=== PATIENT | female | born 1990 | race Caucasian/White ===

== ENCOUNTER 2021-11-05 11:27 | Outpatient (REF) | payer OTHER, SELFPAY | END 2021-11-05 11:28 | disposition home or self-care (01) | LOC: HO.HMGCLDS 11:27 | PROVIDERS: Visit Provider Internal Medicine | DX: Z20.822 Contact with and (suspected) exposure to COVID-19 (principal) | CPT/HCPCS: C9803; U0003; U0005 ==

== ENCOUNTER 2022-02-20 09:02 | Emergency (ER) | payer OTHER, SELFPAY ==
--- NOTE | 2022-02-20 | ECG_ITS ---
Test Reason : CHEST PAIN Blood Pressure : / mmHG Vent. Rate : 096 BPM Atrial Rate : 096 BPM P-R Int : 168 ms QRS Dur : 080 ms QT Int : 378 ms P-R-T Axes : 047 020 043 degrees QTc Int : 477 ms Poor data quality Sinus rhythm with sinus arrhythmia Otherwise normal ECG When compared to the previous EKG of Poor data quality in current ECG precludes serial comparison Referred By: Generic ED Physician Electronically Signed By:PELON AWAD MD
--- NOTE | ~2022-02-20 | CT_ITS ---
EXAMINATION: CT ANGIOGRAM OF THE CHEST WITH AND WITHOUT CONTRAST (CT PULMONARY ANGIOGRAM FOR PE) CLINICAL INFORMATION: Reason for Exam shortness of breath, chest pain COMPARISON: None TECHNIQUE: Prior to contrast administration, noncontrast localization images were obtained. Subsequently, multidetector volumetric imaging was performed from the thoracic inlet to below the diaphragms following the administration of 85 mL Omnipaque 350 intravenous contrast. No contrast reaction reported Sagittal, coronal, and MIP oblique sagittal reformatted images were obtained on the CT workstation, uploaded to PACS, and reviewed. This CT examination was performed using dose optimization techniques as appropriate, variously including the following: *Automated exposure control *Adjustment of mA and/or kV according to patient size (this includes techniques or standardized protocols for targeted exams where dose is matched to indication/reason for exam; i.e. extremities or head) *Use of iterative reconstruction technique Total exam dose-length product 250 mGy-cm FINDINGS: QUALITY OF STUDY/CONTRAST BOLUS: Satisfactory. PULMONARY ARTERIES: No central or segmental pulmonary emboli. THORACIC AORTA: No aneurysm or dissection. LUNG: No focal consolidation, nodules or masses. Mild diffuse bronchial thickening without bronchiectasis. PLEURA: No pleural effusion or pneumothorax. MEDIASTINUM: Normal heart size. No pericardial effusion. No hilar or mediastinal lymphadenopathy. No evidence of septal bowing or right heart strain. CHEST WALL/AXILLA: No axillary or internal mammary lymphadenopathy. OSSEOUS STRUCTURES: No acute or suspicious osseous abnormality. UPPER ABDOMEN: Unremarkable. CT/CT angio chest PE protocol IMPRESSION: No pulmonary embolism. No acute pulmonary parenchymal abnormalities. VTE: negative
--- NOTE | 2022-02-20 09:09 | ED.GENADULT ---
HPI - General Adult General Chief complaint: Asthma Stated complaint: asthma chest pain Time Seen by Provider: 02/20/22 09:09 Source: patient Mode of arrival: ambulatory Limitations: no limitations History of Present Illness HPI narrative: Patient is a 31 year old female presenting to the emergency department today with chest pain. Patient states that she has a history of asthma and was recently started on a new medication but does not feel like the medication is helping. Patient states that she feels like she is more short of breath with this chest pain and feels as though the chest pain is her lungs rubbing on her ribs. Patient denies any dizziness, lightheadedness, abdominal pain, nausea, vomiting, fever, chills, blurry vision, double vision, loss of vision, back pain, night sweats, pain with urination, increased urinary frequency, increased urinary urgency, blood in her urine or stool, syncope or a near syncopal episode, recent trauma or falls, bowel incontinence, bladder incontinence, bowel retention, bladder retention, or any other complaints at this time. Onset (ago): day(s) Location: chest Radiation: non-radiation Severity: mild Severity scale (1-10): 3 Quality: dull Pain Consistency: constant Relieving factors: none Exacerbating factors: none Associated symptoms: shortness of breath Treatments prior to arrival: none Related Data Previous Rx's Medication Instructions Recorded ibuprofen 200 mg tablet 200 mg PO Q6H PRN #20 tab 02/20/22 Allergies Allergy/AdvReac Type Severity Reaction Status Date / Time diphenhydramine Allergy Intermediate SKIN Unverified 07/20/20 19:09 [From BENADRYL] CRAWLING latex [LATEX] Allergy Intermediate ITCHINESS Unverified 07/20/20 19:09 SEAFOOD Allergy Intermediate THROAT Uncoded 07/20/20 19:09 CLOSES Benadryl Allergy Unknown Uncoded 03/24/19 00:00 Review of Systems Constitutional: Constitutional: Reports no additional constitutional complaints, Denies chills, Denies fever(s) and Denies night sweats Eyes: Eyes: Reports no additional eye complaints, Denies blurry vision, Denies change in vision, Denies diplopia, Denies eye discharge, Denies loss of vision and Denies eye pain ENT: Denies dizziness Cardiovascular: Cardiovascular: Reports no additional cardiovascular complaints, Reports chest pain, Denies lightheadedness, Denies Loss of Consciousness and Reports dyspnea Respiratory: Respiratory: Reports no additional respiratory complaints and Reports dyspnea Gastrointestinal: Gastrointestinal: Reports no additional gastrointestinal complaints, Denies abdominal pain, Denies melena, Denies hematochezia, Denies change in bowel habits and Denies change in stool character Genitourinary: Genitourinary: Denies hematuria, Denies urinary frequency, Denies dysuria, Denies urinary incontinence, Denies urinary hesitancy and Denies urinary urgency Musculoskeletal: Musculoskeletal: Reports no additional musculoskeletal complaints, Denies numbness and Denies tingling Neurologic: Denies dizziness, Denies loss of vision, Denies numbness and Denies tingling Psychiatric: Psychiatric: Reports no additional psychiatric complaints Endocrine: Endocrine: Reports no additional endocrine complaints Hematologic/Lymphatic: Hematologic/Lymphatic: Reports no additional hematologic/lymphatic complaints Allergic/Immunologic: Allergic/Immunologic: Reports no additional allergic/immunologic complaints PMFSH Past Medical History Attestation statement: The following information was validated with the patient. Source: old records reviewed Social History Social History Alcohol intake: never Patient Tobacco Use Status: Never used Tobacco Smoked in Last 30 Days: No Use of substances other than those prescribed or required for medical reasons: Yes Substance Use Type: Marijuana Substance Use Frequency: Weekly Any prior treatment program specific to substance use: No Advance Directives: No Advance Directives Information Provided: No Patient : No Physical Exam ED Vital Signs: Vital Signs - 24 hr 02/20/22 09:16 02/20/22 09:27 02/20/22 10:18 Temperature 98.1 F 98.7 F Pulse Rate 72 73 88 Respiratory Rate 20 18 22 H Blood Pressure 110/64 118/92 H Pulse Oximetry 98 BMI result Body Mass Index 27.6 Const General: cooperative, no acute distress, alert and awake Nutritional Appearance: well nourished Orientation/consciousness: patient oriented x3 Limitations: no limitations HENMT Head: Yes normal to inspection and Yes atraumatic Ears: hearing grossly normal bilaterally and external ears normal General nose exam: Normal external nose present, no nasal discharge noted and no epistaxis Face and sinus: Yes normal facial exam, No abrasion and No laceration Mouth: Normal oral and palatal mucosa present, no drooling and no muffled voice Eyes General: appearance normal, both eyes and all related structures Periorbital: periorbital findings normal Eyelids: Yes eyelids normal Conjunctivae: conjunctivae normal Pupils: Equal, round and reactive pupils present EOM: EOMs intact bilaterally Neck Neck: Yes normal visual inspection, Yes full ROM and Yes no lymphadenopathy Chest Chest palpation & inspection: normal inspection of the chest Resp Effort & Inspection: normal respiratory effort and able to speak in complete sentences Auscultation: clear to auscultation bilaterally Cardio Rate: regular rate Rhythm: regular rhythm GI Inspection: Yes normal to inspection Neuro General: patient oriented x3 and moves all extremities Cranial nerves: Yes Equal, round and reactive pupils present Cognition (Neuro): normal cognition Motor exam (neuro): 5/5 motor strength present throughout Sensory Exam: Normal double simultaneous stimulation for sensation Coordination: [id number] test normal Extrem General: Yes normal to inspection, Yes full ROM and Yes capillary refill normal Psych Appearance: grossly normal Mental Status: mental status grossly normal Affect: normal affect Attitude: cooperative Thought process: Normal thought process present Thought content: Normal thought content present Insight: Good insight present (Psych) Medical Decision Making [facility] Narrative Medical decision making narrative: Patient is a 31 year old female presenting to the emergency department today with chest pain and shortness of breath. Patient's physical exam was unremarkable. Patient's blood work was unremarkable. Patient's EKG was unremarkable. Patient's CT PE showed no acute process. I explained my physical exam findings as well as all test results to the patient. I answered all questions asked by the patient. Patient received IV Decadron and a duoneb breathing treatment which she stated helped her symptoms significantly. I stressed the importance of the patient taking her medication as prescribed. I stressed the importance of the patient following up with her primary care provider. I stressed the importance of the patient returning to the emergency department immediately if her symptoms were to worsen or if she were to develop any dizziness, shortness of breath, difficulty breathing, chest pain, blurry vision, loss of vision, nausea, vomiting, abdominal pain, fever, chills, back pain, or any other complaints. Patient verbalized agreement and understanding with this treatment plan and discharge. Differential Diagnosis Differential Diagnosis: asthma exacerbation, costochondritis Medical Records Medical records reviewed: Yes I reviewed the patient's medical records. Lab Data Lab results reviewed: Yes I reviewed the patient's lab results. Result diagrams: 02/20/22 10:15 02/20/22 10:15 Labs: Lab Results 02/20/22 02/20/22 02/20/22 Range/Units 10:15 10:15 10:15 WBC 6.5 (4.8-10.8) X10*3/uL RBC 4.66 (4.20-5.50) X10*6/uL Hgb 13.9 (12.0-16.0) g/dl Hct 41.7 (37.0-47.0) % MCV 89.5 (80.0-98.0) fL MCH 29.8 (27.0-33.0) pg MCHC 33.3 (31.0-35.0) g/dl RDW 12.3 (11.0-16.0) % Plt Count 218 (160-400) X10*3/uL MPV 10.9 (9.4-12.3) fL Immature Gran % (Auto) 0.2 (0.0-0.4) % Neut % (Auto) 71.7 (45-73) % Lymph % (Auto) 21.0 (20-40) % Rabun % (Auto) 6.9 (2-11) % Eos % (Auto) 0.0 (0-4) % Baso % (Auto) 0.2 (0-2) % Lymph # (Auto) 1.4 (1.2-4.9) X10*3/uL Rabun # (Auto) 0.5 (0.1-1.2) X10*3/uL Eos # (Auto) 0.0 (0.0-0.4) X10*3/uL Baso # (Auto) 0.0 (0.0-0.2) X10*3/uL Abs Immat Gran (auto) 0.01 (0.00-0.03) X10*3/uL Absolute Neuts (auto) 4.7 (2.0-8.3) x10*3/uL Absolute Nucleated RBC 0.000 (0.0-0.012) X10*3/uL Nucleated RBC % (auto) 0.0 (0.0-0.2) /100WBC Sodium 139 (135-145) mmol/L Potassium 3.9 (3.3-5.1) mmol/L Chloride 108 (96-108) mmol/L Carbon Dioxide 22 (22-29) mmol/L Anion Gap 13 (12-20) BUN 16 (9-16) mg/dL Creatinine 0.75 (0.5-1.4) mg/dL Estim Creat Clear Calc 102.4 Estimated GFR > 60 Random Glucose 88 (60-115) mg/dL Calcium 10.0 (8.4-10.2) mg/dL Magnesium 3.1 H (1.6-2.6) mg/dL Total Bilirubin 1.5 H (0.0-1.0) mg/dL AST 24 (5-31) U/L ALT 40 H (0-31) U/L Alkaline Phosphatase 81 (39-117) U/L Troponin I High Sens < 3.5 (<3.5-17.0) ng/L Total Protein 7.8 (6.5-8.0) g/dL Albumin 4.4 (3.5-5.0) g/dL Beta HCG, Quant < 2 mIU/mL Imaging Data CT PE: Attestation: I personally reviewed and interpreted this imaging study as follows: Radiologist's impression: EXAMINATION: CT ANGIOGRAM OF THE CHEST WITH AND WITHOUT CONTRAST (CT PULMONARY ANGIOGRAM FOR PE) CLINICAL INFORMATION: Reason for Exam shortness of breath, chest pain COMPARISON: None? TECHNIQUE: Prior to contrast administration, noncontrast localization images were obtained. ? Subsequently, multidetector volumetric imaging was performed from the thoracic inlet to below the diaphragms following the administration of 85 mL Omnipaque 350 intravenous contrast. No contrast reaction reported Sagittal, coronal, and MIP oblique sagittal reformatted images were obtained on the CT workstation, uploaded to PACS, and reviewed. This CT examination was performed using dose optimization techniques as appropriate, variously including the following: *Automated exposure control *Adjustment of mA and/or kV according to patient size (this includes techniques or standardized protocols for targeted exams where dose is matched to indication/reason for exam; i.e. extremities or head) *Use of iterative reconstruction technique Total exam dose-length product 250 mGy-cm FINDINGS: QUALITY OF STUDY/CONTRAST BOLUS: Satisfactory. PULMONARY ARTERIES: No central or segmental pulmonary emboli.? THORACIC AORTA: No aneurysm or dissection. LUNG: No focal consolidation, nodules or masses. Mild diffuse bronchial thickening without bronchiectasis. PLEURA: No pleural effusion or pneumothorax. MEDIASTINUM: Normal heart size.? No pericardial effusion.? No hilar or mediastinal lymphadenopathy.? No evidence of septal bowing or right heart strain. CHEST WALL/AXILLA: No axillary or internal mammary lymphadenopathy. OSSEOUS STRUCTURES: No acute or suspicious osseous abnormality.? UPPER ABDOMEN: Unremarkable. CT/CT angio chest PE protocol IMPRESSION: No pulmonary embolism. No acute pulmonary parenchymal abnormalities. ? VTE: negative Dictated By: Daniel Izaguirre MD Signed By: Electronically signed by Daniel Izaguirre MD 02/20/22 1205 ECG Data Attestation: I personally reviewed and interpreted this ECG as follows: Prior ECG tracings: available for review Interpretation: Vent. Rate: 096 BPM ? ? Atrial Rate: 096 BPM P-R Int: 168 ms? QRS Dur: 080 ms QT Int: 378 ms ? ? ? P-R-T Axes: 047 020 043 degrees QTc Int: 477 ms ? Poor data quality Sinus rhythm with sinus arrhythmia Otherwise normal ECG Poor data quality in current ECG precludes serial comparison Electronically Signed By:ALLAN AWAD MD Dictated By: Allan Awad MD Signed By: Electronically signed by Allan Awad MD 02/20/22 1302 Discharge Plan Discharge Clinical Impression: Asthma with acute exacerbation, Costochondritis Patient Disposition: Home, Self-Care Instructions: Asthma (ED) Additional Instructions: Follow up with your primary care provider. Return to the emergency department immediately if your symptoms worsen or if you develop any dizziness, shortness of breath, difficulty breathing, chest pain, blurry vision, loss of vision, nausea, vomiting, abdominal pain, fever, chills, back pain, or any other complaints. Prescriptions: New ibuprofen 200 mg tablet 200 mg PO Q6H PRN (Reason: pain) Qty: 20 0RF Referrals: Karan Wise NP [Primary Care Provider] - (Follow up with your PCP. ) Interventions: ED Discharge Assessment Last Done: 02/20/22 12:33 Discharge Date/Time: 02/20/22 12:33 Print Language: Kinyarwanda
[2022-02-20 09:16] VITALS: BP 110/64; PULSE 72; RESP 20; TEMP 36.7; BMI 27.6
[2022-02-20 09:27] VITALS: PULSE 73; RESP 18; O2SAT 100
[2022-02-20] MEDS: Albuterol/Iprat 2.5/0.5MG 3 ML AMPUL.NEB INHALE (09:27)
[2022-02-20] MEDS: Magnesium Sulfate/H2O 2 GM/50 ML PIGGYBACK IV (09:42)
[2022-02-20] MEDS: dexAMETHasone sod phosphate 10 MG/ML VIAL IVPUSH (09:42)
[2022-02-20 10:18] VITALS: BP 118/92; PULSE 88; RESP 22; TEMP 37.1; O2SAT 98
[2022-02-20 10:21] LABS: MANUAL DIFF FLAG NO
[2022-02-20 10:28] LABS: Basophils Percent Auto 0.2 % (0-2); Hematocrit 41.7 % (37.0-47.0); Hemoglobin 13.9 g/dl (12.0-16.0); Imm Gran Abs Auto 0.01 X10*3/uL (0.00-0.03); Imm Gran Pct Auto 0.2 % (0.0-0.4); Lymphocytes Absolute Auto 1.4 X10*3/uL (1.2-4.9); Mean Corpuscular HGB Conc 33.3 g/dl (31.0-35.0); Mean Corpuscular Hemoglobin 29.8 pg (27.0-33.0); Mean Corpuscular Volume 89.5 fL (80.0-98.0); Mean Platelet Volume 10.9 fL (9.4-12.3); Monocytes Absolute Auto 0.5 X10*3/uL (0.1-1.2); Monocytes Percent Auto 6.9 % (2-11); Neutrophils Absolute Auto 4.7 x10*3/uL (2.0-8.3); Neutrophils Percent Auto 71.7 % (45-73); Platelet Count 218 X10*3/uL (160-400); Red Blood Count 4.66 X10*6/uL (4.20-5.50); Red Cell Distribution Width 12.3 % (11.0-16.0); White Blood Count 6.5 X10*3/uL (4.8-10.8)
[2022-02-20 10:43] LABS: Alanine Aminotransferase 40 U/L (0-31); Albumin Level 4.4 g/dL (3.5-5.0); Alkaline Phosphatase 81 U/L (39-117); Anion Gap 13 (12-20); Aspartate Amino Transferase 24 U/L (5-31); Bilirubin Total 1.5 mg/dL (0.0-1.0); Blood Urea Nitrogen 16 mg/dL (9-16); Carbon Dioxide 22 mmol/L (22-29); Chloride 108 mmol/L (96-108); Creatinine Clr Calc Pharmacy 102.4; Estimated Glomerular Filt Rate > 60; Glucose Random 88 mg/dL (60-115); Magnesium 3.1 mg/dL (1.6-2.6); Potassium 3.9 mmol/L (3.3-5.1); Sodium 139 mmol/L (135-145); Total Protein 7.8 g/dL (6.5-8.0)
[2022-02-20 10:49] LABS: Troponin-I High Sensitivity < 3.5 ng/L (<3.5-17.0)
[2022-02-20 10:50] LABS: HCG Quantitative < 2 mIU/mL
[2022-02-20] MEDS: iohexoL 350 MG/ML 100 ML INFUS..BTL IV (11:39)
== END 2022-02-20 12:33 | disposition home or self-care (01) ==
PROVIDERS: Physician Assistant Medical; Emergency Provider Emergency Medicine; PCP Nurse Practitioner Family
DX: J45.901 Unspecified asthma with (acute) exacerbation (principal); M94.0 Chondrocostal junction syndrome [Tietze]
CPT/HCPCS: 36415; 71275; 80053; 83735; 84484; 84702; 85025; 93005; 94640; 96365; 96366; 96375; 99284; J1100; J3475; Q9967

== ENCOUNTER 2022-02-26 07:48 | Emergency (ER) | payer OTHER, SELFPAY ==
--- NOTE | ~2022-02-26 | XR_ITS ---
EXAMINATION: XR CHEST CLINICAL INFORMATION: Cough, shortness of breath COMPARISON: CT angiography chest from 02/20/2022 TECHNIQUE: Frontal view of the chest was obtained. FINDINGS: No focal consolidation. No pneumothorax. Trachea is midline. Cardiomediastinal silhouette is not enlarged. No large pleural effusions. Slight levocurvature of the thoracolumbar junction. Soft tissues are unremarkable. XR/XR chest 1V IMPRESSION: No acute cardiopulmonary process.
[2022-02-26 07:52] VITALS: BP 119/72; PULSE 111; RESP 26; TEMP 36.6; O2SAT 97; BMI 27.4
--- NOTE | 2022-02-26 08:09 | ECG_ITS ---
Test Reason : SOB Blood Pressure : / mmHG Vent. Rate : 097 BPM Atrial Rate : 097 BPM P-R Int : 168 ms QRS Dur : 080 ms QT Int : 352 ms P-R-T Axes : 072 065 061 degrees QTc Int : 447 ms Normal sinus rhythm Premature ventricular complexes Abnormal ECG When compared with ECG of 20-FEB-2022 09:10, No significant changes seen Referred By: Leidy Dunbar Electronically Signed By:MAINOR DAVEY
--- NOTE | 2022-02-26 08:17 | ED.SOB ---
HPI - SOB/Dyspnea General Chief Complaint: Dyspnea Stated Complaint: asthma Time Seen by Provider: 02/26/22 08:03 Source: patient Mode of arrival: ambulatory History of Present Illness HPI Narrative: 31-year-old female with a past medical history of asthma presenting to the ED complaining worsening cough, SOB, and chest tightness x1 month. Patient reports was recently seen in the ED on 02/20/2022 for similar symptoms related to her asthma, however without relief. Admits is currently using albuterol, nebulizer and prednisone without relief. Denies fever, chills, pedal edema, recent travel, sick contacts MD elicited complaint: shortness of breath, cough, chest pain and asthma attack Related Data Previous Rx's Medication Instructions Recorded ibuprofen 200 mg tablet 200 mg PO Q6H PRN #20 tab 02/20/22 albuterol sulfate 2.5 mg/0.5 mL 5 mg INHALATION Q4H PRN #30 ea 02/26/22 solution for nebulization benzonatate 200 mg capsule 200 mg PO TID PRN #20 cap 02/26/22 fluticasone propionate 50 2 spray INTRANASAL DAILY #16 g 02/26/22 mcg/actuation nasal spray,suspension (Flonase Allergy Relief) lidocaine 5 % topical patch 1 patch TOPICAL DAILY PRN #30 ea 02/26/22 (Lidoderm) MDD remove after 12 hours Allergies Allergy/AdvReac Type Severity Reaction Status Date / Time diphenhydramine Allergy Intermediate SKIN Verified 02/26/22 07:52 [From BENADRYL] CRAWLING latex [LATEX] Allergy Intermediate ITCHINESS Verified 02/26/22 07:52 SEAFOOD Allergy Intermediate THROAT Uncoded 07/20/20 19:09 CLOSES Review of Systems Review of Systems: Constitutional: No Fever, No Chills, No Fatigue, No Malaise ENT/Mouth: No Hearing loss, No Ear Pain, No Nasal Congestion, No Sinus Pain, No Hoarseness, No sore throat, No Rhinorrhea, No Swallowing Difficulty Eyes: No Eye Pain, No Swelling, No Redness Cardiovascular: + Chest Pain, + SOB, + Dyspnea on Exertion, + Orthopnea, No Edema, No Palpitations Respiratory: No Cough, No Sputum, No Wheezing, No Smoke Exposure, No Dyspnea Gastrointestinal: No Nausea, No Vomiting, No Diarrhea, No Constipation, No Abdominal pain Genitourinary: No Dysuria, No Urinary Frequency, No Hematuria, No Flank Pain, No Urinary Flow Changes Musculoskeletal: No joint pain, No Myalgias, No Joint Swelling Skin: No Skin Lesions, No rash Neuro: No Weakness, No Dizziness, No Headache Yes all other systems are reviewed and are negative [facility] Past Medical History Attestation statement: The following information was validated with the patient. Medical History Asthma Social History Social History Alcohol intake: never Patient Tobacco Use Status: Never used Tobacco Use of substances other than those prescribed or required for medical reasons: No Substance Use Type: Marijuana Advance Directives: No Advance Directives Information Provided: No Physical Exam Vital Signs: Vital Signs: Last Vital Signs Temp 98.1 F 02/26/22 08:46 Pulse 92 02/26/22 10:33 Resp 97 H 02/26/22 10:33 BP 112/59 L 02/26/22 10:33 Pulse Ox 97 02/26/22 10:33 BMI result Body Mass Index 27.4 Const: General: cooperative, healthy appearing and no acute distress Orientation/consciousness: patient oriented x3 Limitations: no limitations HEENT: Head: Yes normal to inspection and Yes atraumatic Ears: hearing grossly normal bilaterally General nose exam: Normal external nose present Face and sinus: Yes normal facial exam Eyes: General: appearance normal, both eyes and all related structures EOM: EOMs intact bilaterally Neck: Neck: Yes normal visual inspection and Yes no meningeal signs Resp: Effort & Inspection: labored and tachypneic Auscultation: no rales, no rhonchi, wheezes expiratory wheezes and diminished lung sounds diffuse Cardio: Rate: regular rate Heart sounds: S1 normal heart sound present and S2 normal heart sound present GI: Inspection: Yes normal to inspection Skin: Rashes: no rashes Wounds: no wounds Neuro: General: patient oriented x3, tone normal and no meningeal signs Gait exam (Neuro): Normal gait present Extrem: General: Yes normal to inspection, Yes no pedal edema and Yes no calf tenderness Course Course Course Narrative: -mild leukopenia to 4.2. Labs otherwise unremarkable. Troponin negative. -influenza a positive >0940--on re-evaluation patient reports symptomatic improvement, vital signs stabilized, lungs with better air movement & only mild residual end-expiratory wheeze. results discussed, will order additional albuterol neb XR chest 1V IMPRESSION: No acute cardiopulmonary process. -1039--On re-evaluation patient reports symptomatic improvement, lungs CTA on re-evaluation. Discussed worrisome signs and symptoms and strict return precautions and needed close follow-up with PCP, she verbalized understanding and feels safe for discharge home -patient currently on 15 day prednisone taper prescription filled on 02/19 MDM - SOB/Dyspnea MDM Narrative Medical decision making narrative: 31-year-old female with a past medical history of asthma presenting to the ED complaining worsening cough, SOB, and chest tightness x1 month. On exam tachypneic, tachycardic, increased work of breathing, diffuse x-ray exp wheeze. Concern for asthma exacerbation vs viral illness including COVID-19/influenza vs pneumonia. Lower concern for PE/CHF. Symptoms atypical for ACS Of no on 02/20/2022 patient had CTA to rule out PE which was unremarkable Plan: EKG, labs, CXR, COVID 19/influenza testing, DuoNeb, magnesium, Solu-Medrol, re-evaluate Differential Diagnosis Differential diagnosis: Likely acute exacerbation of chronic obstructive airways disease, pneumonia and asthma with exacerbation Medical Records Attestation: I reviewed the patient's medical records. Lab Data Attestation: I reviewed the patient's lab results. Result diagrams: 02/26/22 08:31 02/26/22 08:31 Labs: Lab Results 02/26/22 02/26/22 02/26/22 Range/Units 08:31 08:31 08:31 WBC 4.2 L (4.8-10.8) X10*3/uL RBC 4.24 (4.20-5.50) X10*6/uL Hgb 12.9 (12.0-16.0) g/dl Hct 38.4 (37.0-47.0) % MCV 90.6 (80.0-98.0) fL MCH 30.4 (27.0-33.0) pg MCHC 33.6 (31.0-35.0) g/dl RDW 12.6 (11.0-16.0) % Plt Count 168 (160-400) X10*3/uL MPV 10.6 (9.4-12.3) fL Immature Gran % (Auto) 1.0 H (0.0-0.4) % Neut % (Auto) 74.3 H (45-73) % Lymph % (Auto) 17.0 L (20-40) % [place] % (Auto) 7.0 (2-11) % Eos % (Auto) 0.2 (0-4) % Baso % (Auto) 0.5 (0-2) % Lymph # (Auto) 0.7 L (1.2-4.9) X10*3/uL [place] # (Auto) 0.3 (0.1-1.2) X10*3/uL Eos # (Auto) 0.0 (0.0-0.4) X10*3/uL Baso # (Auto) 0.0 (0.0-0.2) X10*3/uL Abs Immat Gran (auto) 0.04 H (0.00-0.03) X10*3/uL Absolute Neuts (auto) 3.1 (2.0-8.3) x10*3/uL Absolute Nucleated RBC 0.000 (0.0-0.012) X10*3/uL Nucleated RBC % (auto) 0.0 (0.0-0.2) /100WBC Sodium 141 (135-145) mmol/L Potassium 3.6 (3.3-5.1) mmol/L Chloride 108 (96-108) mmol/L Carbon Dioxide 27 (22-29) mmol/L Anion Gap 10 L (12-20) BUN 13 (9-16) mg/dL Creatinine 0.72 (0.5-1.4) mg/dL Estim Creat Clear Calc 106.4 Estimated GFR > 60 Random Glucose 87 (60-115) mg/dL Calcium 9.2 D (8.4-10.2) mg/dL Magnesium 1.8 (1.6-2.6) mg/dL Total Bilirubin 0.8 (0.0-1.0) mg/dL Direct Bilirubin 0.4 (0.0-0.5) mg/dL AST 14 D (5-31) U/L ALT 19 (0-31) U/L Alkaline Phosphatase 67 (39-117) U/L Troponin I High Sens < 3.5 (<3.5-17.0) ng/L B-Natriuretic Peptide 28 (<100) pg/mL Total Protein 6.5 (6.5-8.0) g/dL Albumin 3.9 (3.5-5.0) g/dL COVID-19 (MICHELLE) (Negative) COVID-19 Clin Com Influenza Type A (YUNIER) (Negative) Influenza Type B (YUNIER) (Negative) Influenza A & B Note 02/26/22 02/26/22 Range/Units 08:31 08:31 WBC (4.8-10.8) X10*3/uL RBC (4.20-5.50) X10*6/uL Hgb (12.0-16.0) g/dl Hct (37.0-47.0) % MCV (80.0-98.0) fL MCH (27.0-33.0) pg MCHC (31.0-35.0) g/dl RDW (11.0-16.0) % Plt Count (160-400) X10*3/uL MPV (9.4-12.3) fL Immature Gran % (Auto) (0.0-0.4) % Neut % (Auto) (45-73) % Lymph % (Auto) (20-40) % [place] % (Auto) (2-11) % Eos % (Auto) (0-4) % Baso % (Auto) (0-2) % Lymph # (Auto) (1.2-4.9) X10*3/uL [place] # (Auto) (0.1-1.2) X10*3/uL Eos # (Auto) (0.0-0.4) X10*3/uL Baso # (Auto) (0.0-0.2) X10*3/uL Abs Immat Gran (auto) (0.00-0.03) X10*3/uL Absolute Neuts (auto) (2.0-8.3) x10*3/uL Absolute Nucleated RBC (0.0-0.012) X10*3/uL Nucleated RBC % (auto) (0.0-0.2) /100WBC Sodium (135-145) mmol/L Potassium (3.3-5.1) mmol/L Chloride (96-108) mmol/L Carbon Dioxide (22-29) mmol/L Anion Gap (12-20) BUN (9-16) mg/dL Creatinine (0.5-1.4) mg/dL Estim Creat Clear Calc Estimated GFR Random Glucose (60-115) mg/dL Calcium (8.4-10.2) mg/dL Magnesium (1.6-2.6) mg/dL Total Bilirubin (0.0-1.0) mg/dL Direct Bilirubin (0.0-0.5) mg/dL AST (5-31) U/L ALT (0-31) U/L Alkaline Phosphatase (39-117) U/L Troponin I High Sens (<3.5-17.0) ng/L B-Natriuretic Peptide (<100) pg/mL Total Protein (6.5-8.0) g/dL Albumin (3.5-5.0) g/dL COVID-19 (MICHELLE) Negative (Negative) COVID-19 Clin Com See Note Influenza Type A (YUNIER) Positive A (Negative) Influenza Type B (YUNIER) Negative (Negative) Influenza A & B Note See Note ECG Data Attestation: I personally reviewed and interpreted this ECG as follows: ECG interpretation date: 02/26/22 ECG interpretation time: 08:13 Interpretation: EKG sinus rhythm with fusion complexes now present. Rate of 97, QTC 447. No STEMI Discharge Plan Discharge Clinical Impression: Influenza A, Asthma with exacerbation Patient Disposition: Home, Self-Care Instructions: Asthma (DC), Influenza (DC) Additional Instructions: Continue taking previously prescribed prednisone taper. In addition use your inhalers and your nebulizer machine. You have the flu, you are contagious, wash her hands, wear a mask, covering her mouth If symptoms persist or worsen, you develop fever, constant worsening shortness of breath or chest discomfort please return to the emergency department Lidoderm patches or numbing patches, apply to painful areas under chest Flonase is a nasal decongestion. Tessalon Perles for cough, use as needed Prescriptions: New benzonatate 200 mg capsule 200 mg PO TID PRN (Reason: cough) Qty: 20 0RF lidocaine [Lidoderm] 5 % adhesive patch,medicated 1 patch topical DAILY MDD remove after 12 hours PRN (Reason: pain) Qty: 30 0RF Rx Instructions: leave on most painful area for up to 12 hrs fluticasone propionate [Flonase Allergy Relief] 50 mcg/actuation spray,suspension 2 spray intranasal DAILY Qty: 16 0RF Rx Instructions: administer into each nostril albuterol sulfate 2.5 mg/0.5 mL solution for nebulization 5 mg inhalation Q4H PRN (Reason: shortness of breath or wheezing) Qty: 30 0RF No Action ibuprofen 200 mg tablet 200 mg PO Q6H PRN (Reason: pain) Qty: 20 0RF Referrals: Karan Wise NP [Primary Care Provider] - 3 days Interventions: ED Discharge Assessment Last Done: 02/26/22 11:07 Discharge Date/Time: 02/26/22 11:10
[2022-02-26] MEDS: Albuterol Sulfate (0.083%) 2.5 MG/3 ML VIAL.NEB 5 MG INHALE (08:33)
[2022-02-26] MEDS: Albuterol/Iprat 2.5/0.5MG 3 ML AMPUL.NEB INHALE (08:34)
[2022-02-26 08:35] VITALS: PULSE 89; RESP 18; O2SAT 100
[2022-02-26 08:38] LABS: MANUAL DIFF FLAG NO
[2022-02-26 08:40] LABS: Basophils Percent Auto 0.5 % (0-2); Eosinophils Percent Auto 0.2 % (0-4); Hematocrit 38.4 % (37.0-47.0); Hemoglobin 12.9 g/dl (12.0-16.0); Imm Gran Abs Auto 0.04 X10*3/uL (0.00-0.03); Lymphocytes Absolute Auto 0.7 X10*3/uL (1.2-4.9); Mean Corpuscular HGB Conc 33.6 g/dl (31.0-35.0); Mean Corpuscular Hemoglobin 30.4 pg (27.0-33.0); Mean Corpuscular Volume 90.6 fL (80.0-98.0); Mean Platelet Volume 10.6 fL (9.4-12.3); Monocytes Absolute Auto 0.3 X10*3/uL (0.1-1.2); Neutrophils Absolute Auto 3.1 x10*3/uL (2.0-8.3); Neutrophils Percent Auto 74.3 % (45-73); Platelet Count 168 X10*3/uL (160-400); Red Blood Count 4.24 X10*6/uL (4.20-5.50); Red Cell Distribution Width 12.6 % (11.0-16.0); White Blood Count 4.2 X10*3/uL (4.8-10.8)
[2022-02-26 08:46] VITALS: BP 106/58; PULSE 86; RESP 16; TEMP 36.7; O2SAT 100
[2022-02-26 08:53] LABS: COVID-19 Test Negative (Negative)
[2022-02-26 08:56] LABS: Alanine Aminotransferase 19 U/L (0-31); Albumin Level 3.9 g/dL (3.5-5.0); Alkaline Phosphatase 67 U/L (39-117); Anion Gap 10 (12-20); Aspartate Amino Transferase 14 U/L (5-31); Bilirubin Direct 0.4 mg/dL (0.0-0.5); Bilirubin Total 0.8 mg/dL (0.0-1.0); Blood Urea Nitrogen 13 mg/dL (9-16); Calcium 9.2 mg/dL (8.4-10.2); Carbon Dioxide 27 mmol/L (22-29); Chloride 108 mmol/L (96-108); Creatinine Clr Calc Pharmacy 106.4; Estimated Glomerular Filt Rate > 60; Glucose Random 87 mg/dL (60-115); Magnesium 1.8 mg/dL (1.6-2.6); Potassium 3.6 mmol/L (3.3-5.1); Sodium 141 mmol/L (135-145); Total Protein 6.5 g/dL (6.5-8.0)
[2022-02-26 09:00] LABS: B Type Natriuretic Peptide 28 pg/mL (<100); Troponin-I High Sensitivity < 3.5 ng/L (<3.5-17.0)
[2022-02-26 09:07] LABS: Influenza A Positive (Negative); Influenza B2 Negative (Negative)
[2022-02-26] MEDS: Magnesium Sulfate/H2O 2 GM/50 ML PIGGYBACK IV (09:30)
[2022-02-26] MEDS: methylPREDNISolone Sod Succ 125 MG/2 ML VIAL IVPUSH (09:30)
[2022-02-26] MEDS: Albuterol Sulfate (0.083%) 2.5 MG/3 ML VIAL.NEB INHALE (10:06)
[2022-02-26 10:07] VITALS: PULSE 87; RESP 18; O2SAT 100
[2022-02-26 10:33] VITALS: BP 112/59; PULSE 92; RESP 97; O2SAT 97
== END 2022-02-26 11:10 | disposition home or self-care (01) ==
PROVIDERS: Physician Assistant; Emergency Provider Emergency Medicine; PCP Nurse Practitioner Family
DX: J10.1 Influenza due to other identified influenza virus with other respiratory manifestations (principal); J45.901 Unspecified asthma with (acute) exacerbation; R06.02 Shortness of breath; Z20.822 Contact with and (suspected) exposure to COVID-19
CPT/HCPCS: 71045; 80048; 80076; 83735; 83880; 84484; 85025; 87502; 87635; 93005; 96365; 96366; 96375; 99284; 99285; J2930; J3475

== ENCOUNTER 2023-03-24 09:27 | Emergency (ER) | payer OTHER, SELFPAY ==
[2023-03-24 09:46] VITALS: BP 131/81; PULSE 77; RESP 18; TEMP 36.8; O2SAT 99; BMI 26.6
== END 2023-03-24 17:10 | disposition left against medical advice (07) ==
LOC: HO.ED 17:05
PROVIDERS: Emergency Provider Emergency Medicine; PCP Nurse Practitioner Family
DX: G43.909 Migraine, unspecified, not intractable, without status migrainosus (principal)
CPT/HCPCS: 99281